=== PATIENT | female | born 2000 | race Caucasian/White ===

== ENCOUNTER 2020-01-13 12:16 | Emergency (ER) | payer OTHER ==
[~2020-01-13] VITALS: Ht 162.6 cm; Wt 79.4 kg
[~2020-01-13 12:16] MED LIST: MEBENDAZOLE100 MG PO
[2020-01-13] MEDS ORDERED: FLEXERIL PO (13:16)
[2020-01-13] MEDS ORDERED: VISTARIL 25 MG25 M1 PO (13:18)
[2020-01-13 13:43] VITALS: BP 122/77
== END 2020-01-13 13:44 | disposition home or self-care (01) ==
LOC: M.ERS 12:16
DX: M79.632 Pain in left forearm (principal); M25.642 Stiffness of left hand, not elsewhere classified; F41.9 Anxiety disorder, unspecified; Z90.89 Acquired absence of other organs; Z88.8 Allergy status to other drugs, medicaments and biological substances; V89.0XXA Person injured in unspecified motor-vehicle accident, nontraffic, initial encounter; Y93.89 Activity, other specified; Y92.89 Other specified places as the place of occurrence of the external cause; Y99.8 Other external cause status